=== PATIENT | male | born 1955 | race Caucasian/White ===

== ENCOUNTER 2024-11-25 07:19 | Day surgery (SDC) | payer MEDICARE ==
[~2024-11-25 07:19] MED LIST: ACETAMINOPHEN TAB 500 MG TAB PO PRN; TRANEXAMIC 1,000 MG/100ML-NACL 1,000 MG in SALINE 1 100ML.BAG IVPB PRN
[2024-11-25] MEDS: GABAPENTIN 300 MG CAP PO PRN (08:21)
[2024-11-25] MEDS: MELOXICAM 7.5 MG TAB PO PRN (08:21)
[2024-11-25] MEDS: METOPROLOL TARTRATE 5 MG/5 ML VIAL IVP STA (08:26)
[2024-11-25] MEDS: MIDAZOLAM 2 MG/2 ML VIAL IV ONE (08:28)
[2024-11-25] MEDS: fentaNYL (PF) 50 MCG/ML 2 ML AMP IVP PRN (08:29)
[2024-11-25] MEDS: ONDANSETRON 4 MG/2 ML VIAL IVP ONE (08:31)
[2024-11-25] MEDS: DEXAMETHASONE SOD PHOSPHATE 4 MG/ML 1 ML VIAL IV ONE (08:31)
[2024-11-25] MEDS: IV FLUID CONTINUATION 1,000 ML IV ONE (08:34)
[2024-11-25] MEDS: LACTATED RINGERS 1,000 ML IV SCH (08:34)
--- NOTE | 2024-11-25 08:37 | P.ANPRN ---
Procedure Note - Anesthesia - Nerve Block Performed Rik Single Time Out Performed: Yes Date of Procedure: 11/25/24 Procedure Start Time: : Procedure Stop Time: :32 Location of Patient: PreOp Indication: Acute Post-Operative Pain, Requested by Surgeon Sedation Type: Sedate with meaningful contact maintained Preparation: Sterile Prep Position: Supine Needle Types: Pajunk Needle Gauge: 21 Ultrasound used to visualize needle placement: Yes Ultrasound used to observe medication spread: Yes Injectate: 0.5% Ropivacaine (see comment for volume) (20 mL +10 mL of normal saline +4 mg dexamethasone) Blood Aspirated: No Pain Paresthesia on Injection Noted: No Resistance on Injection: Normal Image Stored and Saved: Yes Events: Uneventful and Well Tolerated
[2024-11-25] MEDS ORDERED: HYDROmorphone 0.5 MG/0.5 ML SYRINGE IVP PRN ×2 (08:47)
[2024-11-25] MEDS ORDERED: MAGNESIUM HYDROXIDE 2,400 MG/30 ML CUP PO PRN (08:47)
[2024-11-25] MEDS ORDERED: NALOXONE 0.4 MG/ML 1 ML VIAL IV PRN (08:47)
[2024-11-25] MEDS ORDERED: HYDROcodone/APAP 7.5-325MG 1 EACH TAB PO PRN (08:49)
[2024-11-25] MEDS ORDERED: MIDAZOLAM 2 MG/2 ML VIAL ONE (09:03)
[2024-11-25] MEDS ORDERED: fentaNYL (PF) 50 MCG/ML 2 ML AMP ONE (09:03)
[2024-11-25] MEDS ORDERED: SUCCINYLCHOLINE CHLORIDE 200 MG/10 ML VIAL IV ONE (09:03)
[2024-11-25] MEDS ORDERED: TRANEXAMIC 1,000 MG/100ML-NACL PREMIX BAG ONE (09:03)
[2024-11-25] MEDS ORDERED: LIDOCAINE 1% INJ 10MG/ML (20 ML MDV) ONE (09:03)
[2024-11-25] MEDS ORDERED: SODIUM CHLORIDE 0.9% (PF) 10 ML VIAL ONE (09:03)
[2024-11-25] MEDS ORDERED: PHENYLEPHRINE 10 MG/ML VIAL ONE (09:03)
[2024-11-25] MEDS ORDERED: NEOSTIGMINE 1 MG/ML 10 ML VIAL ONE (09:03)
[2024-11-25] MEDS ORDERED: ROPIVACAINE 5 MG/ML 30 ML VIAL ONE (09:03)
[2024-11-25] MEDS ORDERED: PROPOFOL 10 MG/ML 20 ML VIAL IV ONE (09:03)
[2024-11-25] MEDS ORDERED: GLYCOPYRROLATE 0.2 MG/ML 2 ML VIAL ONE (09:03)
[2024-11-25] MEDS ORDERED: ROCURONIUM 10 MG/ML (5 ML VIAL) IV ONE (09:03)
[2024-11-25] MEDS ORDERED: DEXAMETHASONE SOD PHOSPHATE 4 MG/ML 1 ML VIAL ONE (09:03)
[2024-11-25] MEDS: ceFAZolin 1,000 MG in SODIUM CHLORIDE 0.9% 1,000 ML IRRIGATION ONE (09:08)
[2024-11-25] MEDS: ROPIVACAINE 5 MG/ML 30 ML VIAL MISCELLANE ONE ×2 (09:40→10:15)
[2024-11-25] MEDS: LACTATED RINGERS 1,000 ML IV ONE ×2 (10:15)
--- NOTE | 2024-11-25 10:20 | P.OP ---
Date of Procedure: 11/25/24 Preoperative Diagnosis: Severe osteoarthritis left hip Postoperative Diagnosis: Severe osteoarthritis left hip Procedure(s) Performed: Left total hip arthroplasty with a direct anterior approach Implants: [employer] Polarstem standard size4 with a collar [employer] R3, 3 hole hemispherical acetabular shell, 52 mm [employer] Reflection 6.5 mm cancellus screws, 20 mm 2 [employer] R3, XLPE 20 acetabular liner [employer] Oxinium femoral head 36 mm, +0 All components were press-fit. The articulation is Oxinium on polyethylene. Anesthesia: GETA Surgeon: Wilber Martinez Principal Architect #1: Kisha Beltran Estimated Blood Loss (ml): 500 Pathology: none sent Condition: stable Disposition: PACU Indications for Procedure: After failure of conservative treatment we discussed the surgical and nonsurgica l treatment options at length. Patient wishes to proceed with a total hip arthroplasty with a direct anterior approach. Complications specific to this procedure were discussed at length, including but not limited to infection, leg length discrepancy, dislocation, nerve injury, and fracture. Covid-19 was also discussed at length with the patient, and they are aware of the current policies and procedures. The patient was given the option of delaying surgery, but they elect to proceed knowing these risks. Patient is aware of all these complications and informed consent was obtained Operative Findings: The operative findings are consistent with severe arthritis of the left hip Description of Procedure: The patient was seen and evaluated in the preoperative area and the consent was reviewed. The operative site was marked with a skin marker. The patient verified the procedure and operative site. A ISRRAEL block was placed by leatha sawyer in the preoperative area. The patient was then brought to the operating room and given preoperative antibiotics intravenously. 1 g of Tranexamic acid was also given intravenously. A general anesthetic was administered by the anesthesia department. The patient was then placed on the [place] table with the bony prominences well-padded. The hip area was then prepped with a ChloraPrep solution and draped in the usual sterile fashion. A universal timeout was then performed, which confirmed the patient's name, surgical site, ALLERGIES, and procedure being performed on the consent. Next th e incision site was located at 1 cm distal and 4 cm lateral to the anterior superior iliac spine. The skin and subcutaneous tissues were sharply incised. Incision was carefully dissected down to the fascia overlying the tensor fascia leslie muscle. This fascia was then incised in line with the muscle fibers. Care was taken to stay laterally in order to avoid injuring the lateral femoral cutaneous nerve. Next, using blunt finger dissection, the tensor fascia leslie muscle was dissected off its investing fascia. The muscle was then carefully retracted laterally with a cobra retractor over the lateral neck of the femur. Next, the circumflex vessels were identified and cauterized using the Aquamantis device. The anterior hip capsule was then exposed. The capsule was then opened and an inverted T fashion. The retractors were then placed intracapsularly. The retractors were maintained intracapsular throughout the procedure. The proximal femur was then visualized. Fluoroscopic x-rays were then taken in order to evaluate the preoperative leg lengths. A small amount of traction was placed on the leg. The femoral neck was then osteotomized at the appropriate level above the lesser trochanter. A small wedge of bone was then removed from the remaining femoral head. Next, using a corkscrew the femoral head was removed from the acetabulum. On gross visual inspection, the femoral head had complete loss of articular cartilage and multiple periarticular osteophytes. The femoral head was then measured. Attention was then turned to the acetabulum. The acetabulum was exposed and any remaining labrum was excised. Sequential reaming of the acetabulum was performed using fluoroscopic guidance until there was a good bed of bleeding cancellus bone. When the appropriate size was reached, a trial was then placed. The position and fit of the trial was checked with fluoroscopy. The trial was then removed. Then, using fluoroscopic guidance, the final implant was impacted at 20 of anteversion and 40 of abduction, and fully seated in the acetabulum. 2 screws were then placed in the acetabulum. Again fluoroscopy was used to check position of the screws. Next, the liner was then impacted, with a 20 elevated liner located in the anterior superior quadrant. Component locking was confirmed. Attention was then directed to the femur. With the aid of the [place] table, the femur was externally rotated to approximately 130, extended, and adducted under the opposite leg. A side hook was then placed under the proximal femur, and the side hook elevator was used to elevate the proximal femur while releasing the capsule. Retractors were then placed. A capsular release was performed, as well as a release of the conjoined tendon, which afforded excellent visualizati on of the proximal femur. Next, a box osteotome was used to lateralize the proximal femur. A blanket cutter hand was then used to locate the femoral canal. Sequential broaching was then performed with appropriate size which afforded excellent fixation in the proximal femur. A trial was then placed with appropriate head and neck, and the hip was gently reduced with the aid of the [place] table. Fluoroscopy was then used to check position of the components, as well as to evaluate the leg lengths and offset. The leg lengths and offset were measured as closely as possible to ensure stability of the hip. The hip was then gently dislocated and the trials were then removed. Final implants were then impacted and the hip was again reduced. Final fluoroscopic x-rays confirmed that the components were in anatomic position. The leg lengths and offset were measured and were found to coincide with the trial measurements. The hip was also taken through range of motion, and found to be stable. The hip was then copiously irrigated with antibiotic solution with pulsatile lavage. The hip was then irrigated with Irrisept solution. The soft tissues were then injected with a ropivacaine solution. A second dose of 1 g of Tranexamic acid was also given intravenously. The fascia was then closed with 2-0 strata fix suture. The subcutaneous tissue was closed with 3-0 Vicryl. The subcuticular tissue was closed with 3-0 moncryl suture. The skin was then closed with Exofin skin glue. After the glue and dried, and Optifoam silver impregnated dressing was applied. The patient was then transferred to the recovery room in stable condition. The health center assistant KASSI Choi was required due to the complexity of surgery, and the need for skilled surgical instrument mechanic for positioning, draping, exposure, retraction, and closure of the wound.
--- NOTE | 2024-11-25 10:58 | FL ---
Fluoroscopy INDICATION: Pain FINDINGS: Fluoroscopy time: 22.7 seconds. Total dose area product (DAP) in uGy*m?, mGy*cm? (or similar): 1.4780 Images obtained: 3. IMPRESSION: 1. Documentation of fluoroscopy. [facility], , 11/25/2024 10:55 AM
--- NOTE | 2024-11-25 10:59 | XR ---
Fluoroscopy INDICATION: Pain FINDINGS: Fluoroscopy time: 22.7 seconds. Total dose area product (DAP) in uGy*m?, mGy*cm? (or similar): 1.4780 Images obtained: 3. Images document placement of femoral hip head prosthesis. IMPRESSION: 1. Documentation of fluoroscopy. [facility], , 11/25/2024 10:57 AM
[2024-11-25] MEDS: HYDROmorphone 0.5 MG/0.5 ML SYRINGE IVP PRN ×2 (11:08→21:48)
[2024-11-25] MEDS: hydrALAZINE HCL 20 MG/ML 1 ML VIAL IVP PRN (12:03)
--- NOTE | 2024-11-25 14:59 | XR ---
EXAMINATION TYPE: XR Hip Limited LT DATE OF EXAM: 11/25/2024 COMPARISON: None HISTORY: Post hip prosthesis placement. TECHNIQUE: AP view of hip. SIDE IMAGED: Left FINDINGS: There has been placement of a hip prothesis. No acute fractures are evident. Post surgica l soft tissue changes are present. IMPRESSION: 1. No acute fracture post hip prothesis placement. [facility], , 11/25/2024 2:56 PM
[2024-11-25] MEDS ORDERED: CYCLOBENZAPRINE 10 MG TAB PO PRN (16:17)
[2024-11-25] MEDS: SODIUM CHLORIDE 0.9% 1,000 ML IV SCH (16:24)
[2024-11-25] MEDS: HYDROcodone/APAP 7.5-325MG 1 EACH TAB PO PRN (17:08)
[2024-11-25] MEDS: ONDANSETRON 4 MG/2 ML VIAL IVP PRN (17:50)
--- NOTE | 2024-11-25 18:27 | P.CONS ---
History of Present Illness - Reason for Consult Consult date: 11/25/24 Medical Management Requesting physician: Wilber Martinez - History of Present Illness History of Presenting Illness: Patient is a 69-year-old male with a past medical history of hypertension, hyperlipidemia, lymphoma, and BPH. He is currently admitted under orthopedic surgery team status post left total hip arthroplasty secondary to severe osteoarthritis of left hip. Surgical procedure was completed by Dr. Martinez. We were consulted for medical management throughout hospitalization. Patient seen and fully evaluated in room 480 shortly after returning from completion of surgical procedure. He currently reports feeling "great". He reports only experiencing minimal postoperative pain in his left hip but states it is much better than expected. He reports he has already ambulated to and from restroom with use of walker and nursing assistance and was able to urinate without any difficulties. He is tolerating clear liquid diet and has been advanced to regular diet and awaiting delivery of his dinner. Patient denies having any postoperative nausea or vomiting and denies any other complaints including headache, lightheadedness, dizziness, chest pain, palpitations, shortness of breath, cough or congestion, or experiencing any focal numbness or weakness in his extremities. Review of systems: Pertinent positives and negatives as discussed in HPI, a complete review of systems was performed and all other systems are negative. Physical exam: Vital signs reviewed and stable. General: Nontoxic, no distress and appears stated age. Derm: Skin warm and dry, normal coloration for ethnicity. Head: Atraumatic, normocephalic and symmetric. Eyes: EOM's intact, no lid lag, and anicteric sclera Mouth: no lip lesions, mucus membranes moist Cardiovascular: regular rate and rhythm with normal S1S2, no murmur, positive posterior tibial pulses bilaterally, and cap refill < 2 seconds. Lungs: Respirations even, regular, and unlabored on room air. Lungs CTA bilaterally, no rhonchi, no rales, no wheezing, and no accessory muscle usage. Abdominal: soft, nontender to palpation, no guarding, no appreciable organomegaly Ext: No gross muscle atrophy, no edema, no contractures. Movement and sensation intact. Neuro: Speech clear, face symmetrical and CN II-XII grossly intact with no noted focal neuro deficits Psych: Alert and oriented to person, place, time, and situation. Appropriate and pleasant affect. Assessment and Plan of Care: Status post left total hip arthroplasty -Management per primary admitting orthopedic surgery team including DVT prophylaxis, pain management, wound/dressing management, weightbearing, and PT/OT. -Patient currently on DVT prophylaxis with aspirin 325 mg twice daily. Hypertension -Monitor vital signs. Continue Aldactone 25 mg daily, olmesartan hydrochlorothiazide 40-25 mg daily, and hydralazine 100 mg twice daily. Hyperlipidemia -Continue Zetia 10 mg daily. BPH -Continue Flomax 0.4 mg daily. GERD -Continue omeprazole 20 mg daily. Depression and anxiety -Continue Wellbutrin 300 mg daily. History of lymphoma -Continue yearly cancer screenings and lab work with PCP. Data reviewed: -Vital signs reviewed. Blood pressure 128/70, heart rate 85, respiratory rate 15, and SpO2 of 96% on room air. -Reviewed operative report. Thank you for allowing us to participate in the care of this pleasant patient. Do not hesitate to contact us with questions. Someone can be reached from the [facility] hospitalist group all hours of the day at [phone] or via [employer]. Patient was seen independently by Nurse Practitioner. This document was prepared using [employer] dictation software. Please allow for errors in cellar packer while rare they do occur. Radu Baldwin NP rendered care for this patient independently, reviewed the findings and plan as documented in the note above and agree with plan. I did not physically speak with or examine the patient on this date. Past Medical History Past Medical History: Cancer, GERD/Reflux, Hyperlipidemia, Hypertension, Osteoarthritis (OA), Prostate Disorder Additional Past Medical History / Comment(s): BPH, hx of lymphoma 2019 .surgically removed, left hip bone on bone. History of Any Multi-Drug Resistant Organisms: None Reported Past Surgical History: Joint Replacement Additional Past Surgical History / Comment(s): removal of lump left axilla. rt total hip, colonoscopy Past Anesthesia/Blood Transfusion Reactions: No Reported Reaction Past Psychological History: No Psychological Hx Reported Smoking Status: Never smoker Past Alcohol Use History: Rare Past Drug Use History: None Reported - Past Family History Sister(s) Family Medical History: Cancer Additional Family Medical History / Comment(s): luekemia Medications and Allergies Home Medications Medication Instructions Recorded Confirmed Type Atorvastatin [Lipitor] 20 mg PO DAILY 11/20/24 11/20/24 History Cholecalciferol [Vitamin D3 (25 25 mcg PO DAILY 11/20/24 11/20/24 History Mcg = 1000 Iu)] Ezetimibe [Zetia] 10 mg PO DAILY 11/20/24 11/20/24 History Ibuprofen 800 mg PO Q8H PRN 11/20/24 11/20/24 History Olmesartan/Hydrochlorothiazide 1 each PO DAILY 11/20/24 11/20/24 History [Olmesartan-Hctz 40-25 mg Tab] Omeprazole 20 mg PO DAILY 11/20/24 11/20/24 History Orphenadrine Citrate [Orphenadrine 100 mg PO BID PRN 11/20/24 11/20/24 History Citrate ER] Sildenafil Citrate 100 mg PO DIRECTED PRN 11/20/24 11/20/24 History Spironolactone 25 mg PO DAILY 11/20/24 11/20/24 History Tamsulosin [Flomax] 0.4 mg PO DAILY 11/20/24 11/20/24 History Unk Aleve 1 tab PO DAILY 11/20/24 11/20/24 History Unk Tylenol 1 tab PO DIRECTED PRN 11/20/24 11/20/24 History buPROPion HCL [buPROPion HCL XL] 300 mg PO DAILY 11/20/24 11/20/24 History hydrALAZINE HCL [Apresoline] 100 mg PO BID 11/20/24 11/20/24 History Aspirin 325 mg PO BID #60 tab 11/25/24 Rx HYDROcodone/APAP 7.5-325MG [[place] 1 - 2 tab PO Q6H PRN #32 tab 11/25/24 Rx 7.5-325] Sennosides [Senokot] 2 tab PO DAILY PRN #60 tablet 11/25/24 Rx Allergies Allergy/AdvReac Type Severity Reaction Status Date / Time No Known Allergies Allergy Verified 11/25/24 07:55 Physical Exam Vitals: Vital Signs Temp Pulse Pulse Resp BP Pulse Ox 11/25/24 14:18 85 15 128/70 96 11/25/24 13:30 88 15 127/69 96 11/25/24 13:00 90 16 134/65 96 11/25/24 12:30 85 15 144/75 94 L 11/25/24 12:00 94 15 181/99 94 L 11/25/24 11:45 91 15 175/99 94 L 11/25/24 11:30 81 15 169/89 94 L 11/25/24 11:15 89 15 171/87 94 L 11/25/24 11:00 85 15 165/98 93 L 11/25/24 10:46 96.9 F L 92 15 168/94 93 L 11/25/24 08:57 87 16 187/104 97 11/25/24 08:48 86 16 200/92 96 11/25/24 08:37 189/116 11/25/24 08:36 79 16 97 11/25/24 08:32 76 16 189/98 96 11/25/24 08:26 203/131 11/25/24 08:15 203/110 11/25/24 08:05 97.5 F L 75 18 96 Intake and Output 11/25/24 11/25/24 11/25/24 06:59 14:59 22:59 Intake Total 1851 Output Total 500 Balance 1351 Intake: IV 1851 Output: Estimated Blood Loss 500 Other: Weight 91.4 kg 91.4 kg
[2024-11-25] MEDS: ASPIRIN 325 MG TAB PO SCH (21:48)
[2024-11-25] MEDS: hydrALAZINE HCL 50 MG TAB PO SCH (21:48)
[2024-11-25] MEDS: SENNOSIDES-DOCUSATE SODIUM 1 EACH TAB PO SCH (21:48)
[2024-11-26 07:10] VITALS: BP 166/99; PULSE 93; RESP 18; TEMP 99
[2024-11-26 08:28] LABS: Basophils # (A) 0.01 X 10*3/uL (0.00-0.10); Basophils % (A) 0.1 %; Eosinophils # (A) 0 X 10*3/uL (0.04-0.35); Eosinophils % (A) 0 %; HCT 40.7 % (39.6-50.0); HGB 13.5 g/dL (13.0-17.0); Lymphocytes # (A) 0.73 X 10*3/uL (0.90-5.00); Lymphocytes % (A) 7.7 %; MCH 29.3 pg (27.0-32.0); MCHC 33.2 g/dL (32.0-37.0); MCV 88.3 FL (80.0-97.0); Mean Platelet Volume 11.6 FL (9.5-12.2); Monocytes # (A) 0.87 X 10*3/uL (0.20-1.00); Monocytes % (A) 9.2 %; NRBC Per 100 WBC 0 X 10*3/uL (0.00-0.01); Neutrophils % (A) 82.6 %; Platelet Count 188 X 10*3/uL (140-440); RBC 4.61 X 10*6/uL (4.40-5.60); RDW 14.1 % (11.5-14.5); WBC 9.45 X 10*3/uL (4.50-10.00)
[2024-11-26] MEDS: CHOLECALCIFEROL 25 MCG (1000 IU) TABLET PO SCH (08:44)
[2024-11-26] MEDS: PANTOPRAZOLE 40 MG TABLET PO SCH (08:44)
[2024-11-26] MEDS: buPROPion XL 300 MG TAB.ER.24H PO SCH (08:44)
[2024-11-26] MEDS: TAMSULOSIN 0.4 MG CAP.ER.24H PO SCH (08:44)
[2024-11-26] MEDS: ATORVASTATIN 20 MG TAB PO SCH (08:44)
[2024-11-26] MEDS: EZETIMIBE 10 MG TAB PO SCH (08:45)
[2024-11-26] MEDS: LOSARTAN 50 MG TAB PO SCH (08:45)
[2024-11-26] MEDS: hydroCHLOROthiazide 25 MG TAB PO SCH (08:45)
[2024-11-26] MEDS: SPIRONOLACTONE 25 MG TAB PO SCH (08:45)
[2024-11-26 09:06] LABS: Blood Urea Nitrogen 14.4 mg/dL (9.0-27.0); Calcium 8.2 mg/dL (8.7-10.3); Carbon Dioxide 25.6 mmol/L (21.6-31.8); Chloride 99 mmol/L (96-109); Glucose 121 mg/dL (70-110); Magnesium 1.7 mg/dL (1.5-2.4); Potassium 3.7 mmol/L (3.5-5.5); Sodium 137 mmol/L (135-145)
--- NOTE | 2024-11-26 10:32 | P.DS ---
Providers Expected date of discharge: 11/26/24 Attending physician: Wilber Martinez Consults: 11/25/24 08:47 Consult Physician Routine Consulting Provider: Tejas Ball Consult Reason/Comments: medical management Do you want consulting provider notified?: Yes Primary care physician: Radha Coker CUSHION INSTALLER - Discharge Diagnosis(es) (1) Osteoarthritis of left hip Current Visit: Yes Status: Acute (2) S/P total hip arthroplasty Current Visit: Yes Status: Acute Hospital Course: This is a 69-year-old male with known history of degenerative arthritis of the left hip. The patient presented for evaluation as an outpatient. After discussion and consideration patient elects to proceed with total hip arthroplasty. The patient is seen preoperatively by Dr. Martinez and medically cleared for surgery by their primary care physician. Patient is admitted to [facility] on 11/25/2024 for total hip arthroplasty. The procedure is performed without complication or sequelae. The patient is doing well postoperatively. Labs and vital signs are stable on day of discharge. On day of discharge patient's hip incision is healing well. There is minimal erythema. There is no drainage noted at this time. There is minimal soft tissue swelling to the hip and thigh. Patient has full foot and ankle motion without difficulty or pain. Calf is soft and nontender to palpation. Neurovascular status to the left lower extremity is intact. Patient is d ischarged home in good condition. Please see [facility] rec for accurate list of home medications. Plan - Discharge Summary Discharge Rx Participant: Yes New Discharge Prescriptions: New Aspirin 325 mg PO BID #60 tab Sennosides [Senokot] 2 tab PO DAILY PRN #60 tablet PRN Reason: Constipation HYDROcodone/APAP 7.5-325MG [[place] 7.5-325] 1 - 2 tab PO Q6H PRN #32 tab PRN Reason: Pain No Action buPROPion HCL [buPROPion HCL XL] 300 mg PO DAILY Sildenafil Citrate 100 mg PO DIRECTED PRN PRN Reason: E.D. Omeprazole 20 mg PO DAILY Ezetimibe [Zetia] 10 mg PO DAILY Cholecalciferol [Vitamin D3 (25 Mcg = 1000 Iu)] 25 mcg PO DAILY Unk Tylenol 1 tab PO DIRECTED PRN PRN Reason: Pain Unk Aleve 1 tab PO DAILY hydrALAZINE HCL [Apresoline] 100 mg PO BID Tamsulosin [Flomax] 0.4 mg PO DAILY Spironolactone 25 mg PO DAILY Ibuprofen 800 mg PO Q8H PRN PRN Reason: Pain Atorvastatin [Lipitor] 20 mg PO DAILY Orphenadrine Citrate [Orphenadrine Citrate ER] 100 mg PO BID PRN PRN Reason: Muscle Pain Olmesartan/Hydrochlorothiazide [Olmesartan-Hctz 40-25 mg Tab] 1 each PO DAILY Discharge Medication List Atorvastatin [Lipitor] 20 mg PO DAILY 11/20/24 [History] Cholecalciferol [Vitamin D3 (25 Mcg = 1000 Iu)] 25 mcg PO DAILY 11/20/24 [History] Ezetimibe [Zetia] 10 mg PO DAILY 11/20/24 [History] Ibuprofen 800 mg PO Q8H PRN 11/20/24 [History] Olmesartan/Hydrochlorothiazide [Olmesartan-Hctz 40-25 mg Tab] 1 each PO DAILY 11/20/24 [History] Omeprazole 20 mg PO DAILY 11/20/24 [History] Orphenadrine Citrate [Orphenadrine Citrate ER] 100 mg PO BID PRN 11/20/24 [History] Sildenafil Citrate 100 mg PO DIRECTED PRN 11/20/24 [History] Spironolactone 25 mg PO DAILY 11/20/24 [History] Tamsulosin [Flomax] 0.4 mg PO DAILY 11/20/24 [History] Unk Aleve 1 tab PO DAILY 11/20/24 [History] Unk Tylenol 1 tab PO DIRECTED PRN 11/20/24 [History] buPROPion HCL [buPROPion HCL XL] 300 mg PO DAILY 11/20/24 [History] hydrALAZINE HCL [Apresoline] 100 mg PO BID 11/20/24 [History] Aspirin 325 mg PO BID #60 tab 11/25/24 [Rx] HYDROcodone/APAP 7.5-325MG [[place] 7.5-325] 1 - 2 tab PO Q6H PRN #32 tab 11/25/24 [Rx] Sennosides [Senokot] 2 tab PO DAILY PRN #60 tablet 11/25/24 [Rx] Follow up Appointment(s)/Referral(s): Wilber Martinez DO [Doctor of Osteopathic Medicine] - 2 Weeks Activity/Diet/Wound Care/Special Instructions: Weightbearing as tolerated with walker. Leave dressing intact. Dressing may be removed by home care nurse or by patient in 7 days. Then change dressing twice daily until follow up. May shower with initial dressing intact and after removal. If dressing become saturated, please remove. Please take aspirin 325mg twice daily for 30 days to prevent blood clots. Recommend use of compression stockings daily until follow up to help prevent swelling and blood clots. May remove at night before sleeping. Please follow[facility]up with [facility] weeks and call with any questions or concerns, . Discharge Disposition: HOME WITH HOME HEALTH SERVICES
--- NOTE | 2024-11-26 12:16 | P.PN ---
Subjective Progress Note Date: 11/26/24 Hospital course: Patient is a 69-year-old male with a past medical history of hypertension, hyperlipidemia, lymphoma, and BPH. He is currently admitted under orthopedic surgery team status post left total hip arthroplasty secondary to severe osteoarthritis of left hip. Surgical procedure was completed by Dr. Martinez. We were consulted for medical management throughout hospitalization. Physical exam: Patient seen and fully evaluated at bedside this morning. He was sitting up in the chair and appears to be doing well. Patient reports he has been ambulating in the halls since yesterday evening and feels great. He denies having any postoperative nausea or vomiting reports only mild pain stating at the maximum pain he had from surgery is maybe a 3 or 4. Patient denies having any numbness/tingling/weakness. He denies having any difficulties with urination and reports feeling great and ready to go home. Vital signs reviewed and stable. General: Nontoxic, no distress and appears stated age. Derm: Skin warm and dry, normal coloration for ethnicity. Head: Atraumatic, normocephalic and symmetric. Eyes: EOM's intact, no lid lag, and anicteric sclera Mouth: no lip lesions, mucus membranes moist Cardiovascular: regular rate and rhythm with normal S1S2, no murmur, positive posterior tibial pulses bilaterally, and cap refill < 2 seconds. Lungs: Respirations even, regular, and unlabored on room air. Lungs CTA bilaterally, no rhonchi, no rales, no wheezing, and no accessory muscle usage. Abdominal: soft, nontender to palpation, no guarding, no appreciable organomegaly Ext: No gross muscle atrophy, no edema, no contractures. Movement and sensation intact. Neuro: Speech clear, face symmetrical and CN II-XII grossly intact with no noted focal neuro deficits Psych: Alert and oriented to person, place, time, and situation. Appropriate and pleasant affect. Assessment and Plan of Care: Status post left total hip arthroplasty -Management per primary admitting orthopedic surgery team including DVT prophylaxis, pain management, wound/dressing management, weightbearing, and PT/OT. -Patient currently on DVT prophylaxis with aspirin 325 mg twice daily. Hypertension -Monitor vital signs. Continue Aldactone 25 mg daily, olmesartan hydrochlorothiazide 40-25 mg daily, and hydralazine 100 mg twice daily. Hyperlipidemia -Continue Zetia 10 mg daily. BPH -Continue Flomax 0.4 mg daily. GERD -Continue omeprazole 20 mg daily. Depression and anxiety -Continue Wellbutrin 300 mg daily. History of lymphoma -Continue yearly cancer screenings and lab work with PCP. Data reviewed: -Vital signs reviewed. Blood pressure slightly elevated this morning prior to home medication administration. Blood pressure 166/99, heart rate 93, respiratory rate 18, temp 99.0 F, and SpO2 of 96% on room air. -Morning labs reviewed. CBC unremarkable. BMP normal findings with sodium 137, potassium 3.7, BUN of 14.4, creatinine 0.8, GFR of 96. Blood glucose was 121. Anion gap is only slightly elevated at 12.40. Thank you for allowing us to participate in the care of this pleasant patient. Do not hesitate to contact us with questions. Someone can be reached from the [facility] hospitalist group all hours of the day at [phone] or via [employer]. Patient was seen independently by Nurse Practitioner. This document was prepared using [employer] dictation software. Please allow for errors in chief accounting officer while rare they do occur. Radu Baldwin NP rendered care for this patient independently, reviewed the findings and plan as documented in the note above and agree with plan. I did not physically speak with or examine the patient on this date. Objective - Vital Signs Vital signs: Vital Signs Temp 99.0 F 11/26/24 07:09 Pulse 93 11/26/24 07:09 Resp 18 11/26/24 07:09 BP 166/99 11/26/24 07:09 Pulse Ox 96 11/26/24 07:09 FiO2 Intake & Output 11/25/24 11/26/24 11/26/24 18:59 06:59 18:59 Intake Total 1851 Output Total 500 Balance 1351 Weight 91.4 kg Intake: IV 1851 Output: Estimated Blood Loss 500 Other: # Voids 2 4 - Labs CBC & Chem 7: 11/26/24 03:10 11/26/24 03:10 Labs: Abnormal Lab Results - Last 24 Hours (Table) 11/26/24 Range/Units 03:10 Neutrophils # 7.80 H (1.80-7.70) X 10*3/uL Lymphocytes # 0.73 L (0.90-5.00) X 10*3/uL Eosinophils # 0 L (0.04-0.35) X 10*3/uL
== END 2024-11-26 12:17 | disposition home health service (06) ==
LOC: OR 07:19 → 4SSUR 14:01 → OR 11-26 12:17
PROVIDERS: ATTEND Orthopaedic Surgery
DX: M16.12 Unilateral primary osteoarthritis, left hip (principal); E78.5 Hyperlipidemia, unspecified; F32.A Depression, unspecified; F41.9 Anxiety disorder, unspecified; G89.18 Other acute postprocedural pain; I10 Essential (primary) hypertension; K21.9 Gastro-esophageal reflux disease without esophagitis; N40.0 Benign prostatic hyperplasia without lower urinary tract symptoms; Z79.82 Long term (current) use of aspirin; Z79.899 Other long term (current) drug therapy; Z85.72 Personal history of non-Hodgkin lymphomas
CPT/HCPCS: 97161; 97166; 64999; 80048; 83735; 85025; 73501; 27130; C1776; J2250; J0360; J1100; J0690 ×3; J2405; J3010; J2795; J1171